=== PATIENT | male | born 1990 | race Two or more races ===

== ENCOUNTER 2024-06-23 14:52 | Emergency (ER) | payer MEDICAID, SELFPAY ==
[2024-06-23 15:10] VITALS: BP 155/101; PULSE 95; RESP 19; TEMP 37.1; O2SAT 96; BMI 40.1
--- NOTE | 2024-06-23 15:16 | XR_ITS ---
Examination: Lumbar spine 3 views Technique one AP lateral coned lateral lower lumbar spine 3 views Exam date and time: June 23, 2024 1532 hours INDICATIONS: Twisting injury to lower back today, lower back pain. FINDINGS: No acute fracture No dislocation No spondylolisthesis Moderate distention posteriorly L5-S1 IMPRESSION: No lumbar fracture
[2024-06-23] MEDS: DIAZEPAM 5 MG TABLET 10 MG PO (15:47)
[2024-06-23] MEDS: KETOROLAC INJ 30 MG/ML VIAL IM (15:47)
--- NOTE | 2024-06-23 16:15 | EDNOTE_ITS ---
ED Back Injury Pain RME/HPI General Chief Complaint: Back Pain/Injury Stated Complaint: Back pain today, twisted wrong Time Seen by Provider: 06/23/24 14:57 Arrival date/time: 06/23/24 14:52 34-year-old male with no significant medical problems presents to the emergency department complaint of lower back pain after twisting injury patient reports no direct trauma. Patient ports no fever nausea or vomiting no saddle anesthesia no loss of bowel or bladder Limitations: no limitations Related Data Previous Rx's ?Medication ?Instructions ?Recorded etodolac 400 mg tablet 400 mg PO BID #30 tabs 01/03 metaxalone 800 mg tablet (Skelaxin) 800 mg PO TID PRN muscle pain #30 01/04/20 tabs meclizine 25 mg tablet 25 mg PO TID PRN dizziness # 20 tabs 01/07/22 acetaminophen 500 mg capsule 1,000 mg (2 x 500 mg) PO TID #30 05/20/22 caps ondansetron 4 mg disintegrating 4 mg PO Q8H PRN nausea and 05/20/22 tablet vomiting #15 tabs cyclobenzaprine 10 mg tablet 10 mg PO TID PRN muscle s pasm 10 06/23/24 days #30 tab-caps ibuprofen 800 mg tablet 800 mg PO TID PRN pain #30 t abs 06/23/24 Allergies Allergy/AdvReac Type Severity Reaction Status Date / Time No Known Allergies Allergy Verified 06/23/24 14:55 Review of Systems Review of Systems Systems Reviewed: All systems reviewed, normal except as documented Constitutional Constitutional: Reports system reviewed and no additional complaints, except as documented, Denies fever(s) and Denies headache(s) Eyes Eyes: Reports system reviewed and no additional complaints, except as documented and Denies blurry vision ENT Ears, Nose, Mouth, and Throat: Reports system reviewed and no additional complaints, except as documented, Denies headache(s), Denies nasal congestion and Denies nasal discharge Cardiovascular Cardiovascular: Reports system reviewed and no additional complaints, except as documented, Denies chest pain and Denies dyspnea Respiratory Respiratory: Reports system reviewed and no additional complaints, except as documented, Denies chest congestion, Denies cough and Denies dyspnea Gastrointestinal Gastrointestinal: Reports system reviewed and no additional complaints, except as documented and Denies abdominal pain Musculoskeletal Musculoskeletal: Reports system reviewed and no additional complaints, except as documented, Denies abnormal gait, Reports back pain, Denies deformity, Denies numbness, Reports stiffness and Denies tingling Integumentary/Breasts Skin/Breast: Reports system reviewed and no additional complaints, except as documented and Denies rash Neurologic Neurologic: Reports system reviewed and no additional complaints, except as documented, Reports as per HPI, Denies abnormal gait, Denies headache(s), Denies numbness and Denies tingling Past Medical History Past Medical History CARDIAC: Negative Cardiac Disorders or Congestive Heart Failure RESPIRATORY: Negative Chronic Obstructive Pulmonary Disease (COPD) or Asthma GENITOURINARY: Negative Renal Disease ENDOCRINE: Negative Diabetes Mellitus Type 1 or Diabetes Mellitus Type 2 HEMATOLOGIC: Negative Sickle Cell Disease Social History SMOKING STATUS: Never smoker SUBSTANCE USE: does not use ED Exam General Limitations: Present no limitations General appearance: Present alert and in no apparent distress Head Head exam: Present atraumatic Eye Eye exam: Present normal appearance, PERRL and EOMI ENT ENT exam: Present normal exam, normal oropharynx and mucous membranes moist Neck Neck exam: Present normal inspection, full ROM and trachea midline Chest Chest inspection: Present normal inspection and symmetric chest wall rise Respiratory Respiratory exam: Present normal lung sounds bilaterally Cardiovascular Cardiovascular exam: Present regular rate, normal rhythm and normal heart sounds Abdominal Exam Abdominal exam: Present soft and normal bowel sounds Extremities Exam Extremities exam: Present normal inspection and full ROM Back Exam Back exam: Present normal inspection, full ROM, tenderness, muscle spasm and paraspinal tenderness; Absent CVA tenderness (R) or CVA tenderness (L) Neurological Exam Neurological exam: Present alert, oriented X3, CN II-XII intact, normal gait and reflexes normal; Absent motor sensory deficit Psychiatric Psychiatric exam: Present normal affect and normal mood Skin Skin exam: Present warm, dry, intact and normal color; Absent rash Course Quality Measures none Orders Category Date Time Status XR lumbar spine 2-3V Stat Exams 06/23/24 15:16 Completed Diazepam [Valium] Med 06/23/24 15:16 Discontinued 10 mg PO X1 ONE Ketorolac Inj [Toradol Inj] Med 06/23/24 15:16 Discontinued 30 mg IM X1 ONE Vital Signs Vital signs: Vital Signs Temperature 98.7 F 06/23/24 15:10 Pulse Rate 95 06/23/24 15:10 Respiratory Rate 19 06/23/24 15:10 Blood Pressure 155/101 H 06/23/24 15:10 Pulse Oximetry (%) 96 06/23/24 15:10 Oxygen Delivery Method Room Air 06/23/24 15:10 O2 saturation 96% room air within the limits Back Pain / Injury MDM Narrative MDM Narrative:: 34-year-old male with no significant medical problems presents to the emergency department complaint of lower back pain after twisting injury patient reports no direct trauma. Patient ports no fever nausea or vomiting no saddle anesthesia no loss of bowel or bladder On exam patient well-appearing patient does not appear ill or toxic in no acute distress Imaging obtained no acute emergent findings noted Patient given pain medication muscle relaxers Patient discharged home in no distress to follow-up with primary care doctor in the next 24 to 48 hours and for any worsening symptoms to return to the ER immediately Patient data External records reviewed:: [facility] previous records Clinical information provided by:: patient Social determinants that could affect healthcare access:: none Patient has the following chronic illnesses:: None How is presenting disease/condition affected by chronic disease/condition?: no chronic disease Evaluation data The following diagnostics were reviewed and interpreted by me:: radiology exam(s) Lab and/or radiology exams considered but not ordered:: Radiology obtain Interpretation Summary: Reviewed by me Medications / Prescriptions Medications or Prescriptions considered but not ordered:: Given Medication administrations:: Medication Administration History Discontinued Medications Diazepam (Diazepam 5 Mg Tablet) 10 mg PO X1 ONE Stop: 06/23/24 15:17 Last Admin: 06/23/24 15:47 Dose: 10 mg Documented By: LISA Ketorolac Tromethamine (Ketorolac Inj 30 Mg/Ml Vial) 30 mg IM X1 ONE Stop: 06/23/24 15:17 Last Admin: 06/23/24 15:47 Dose: 30 mg Documented By: LISA Given Consultations Consultation(s) initiated? (list below): No Diagnosis Differential diagnosis back pain/injury: lumbar radiculopathy, strain of lumbar region, renal colic and pyelonephritis Most likely diagnosis given after review of the tests above:: Back pain Admission Indicated Admission indicated?: not indicated Admission Request Was there a request for admission?: No Disposition Plan Disposition Plan: Discharge Discharge Attestation Discharge Attestation: The patient and all family members were given an opportunity to ask questions and understood the discharge instructions. Discharge instructions specifically effects, indications for sooner follow up or return to the emergency department, and the expected course of current diagnosis. Patient condition: Stable Discharge Plan Plan Patient Disposition: HOME (Self Care) Disposition Comment: Stable Prescriptions/Referrals Prescriptions/Med Rec: New cyclobenzaprine 10 mg tablet 10 mg PO TID PRN (Reason: muscle spasm) 10 Days Qty: 30 0RF ibuprofen 800 mg tablet 800 mg PO TID PRN (Reason: pain) Qty: 30 0RF No Action metaxalone [Skelaxin] 800 mg tablet 800 mg PO TID PRN (Reason: muscle pain) Qty: 30 0RF etodolac 400 mg tablet 400 mg PO BID Qty: 30 0RF meclizine 25 mg tablet 25 mg PO TID PRN (Reason: dizziness) Qty: 20 0RF ondansetron 4 mg tablet,disintegrating 4 mg PO Q8H PRN (Reason: nausea and vomiting) Qty: 15 0RF acetaminophen 500 mg capsule 1,000 mg PO TID Qty: 30 0RF Problem List Clinical Impression: Back pain Patient/Caregiver Discharge Instructions Education Materials: Back Safety: Lifting Additional Instructions: Please follow up with your primary care doctor in the next 24-48hrs for any worsening symptoms return here immediately Print Language: Nepali Stand Alone Forms: Blanche Award Info., Work/School Release, Patient Portal Info Letter BREN/TOBY Supervising Physician BREN/TOBY Supervising Physician: Dr [email or web address]
== END 2024-06-23 18:21 | disposition home or self-care (01) ==
LOC: SERX 16:27
PROVIDERS: Emergency Provider Emergency Medicine; PCP Family Medicine
DX: M54.50 Low back pain, unspecified (principal)
CPT/HCPCS: 72100; 96372; 99283; J1885; A9270